=== PATIENT | male | born 1940 | race Caucasian/White ===

== ENCOUNTER 2019-09-09 14:50 | Emergency (ER) | payer OTHER ==
[~2019-09-09] VITALS: Ht 167.6 cm; Wt 75.3 kg
[~2019-09-09 14:50] MED LIST: ALD25 PO; AMLODIPINE BES2.5 M1 PO; CENTRUM SILVER1 TA4 PO; FOLIC ACID1 MG PO; GOOD SENSE ASPI81 M3 PO; LASIX40 MG PO; METFORMIN ER500 M1 PO; XARELTO20 M1 PO
[2019-09-09 15:05] VITALS: Ht 167.6 cm; Wt 75.3 kg
[2019-09-09 17:18] VITALS: BP 110/66
== END 2019-09-09 17:18 | disposition home or self-care (01) ==
LOC: ED 14:50
DX: M45.6 Ankylosing spondylitis lumbar region (principal); I10 Essential (primary) hypertension; E11.9 Type 2 diabetes mellitus without complications; E78.00 Pure hypercholesterolemia, unspecified; Z98.890 Other specified postprocedural states
CPT/HCPCS: J1885